=== PATIENT | male | born 1955 ===

== ENCOUNTER → 2017-12-11 | Outpatient (REF) | payer SELFPAY ==
[2017-12-11 17:26] LABS: PLATELET COUNT, AUTOMATED 1048 K/uL (150-450)
== END ==
LOC: ZZSENDIN 16:49
PROVIDERS: ATTEND Family Medicine
DX: R06.00 Dyspnea, unspecified (principal)
CPT/HCPCS: 82040; 82247; 82310; 82374; 82435; 82565; 82947; 83880; 84075; 84132; 84155; 84295; 84450; 84460; 84484; 84520; 85025